=== PATIENT | male | born 1960 | race Caucasian/White ===

== ENCOUNTER 2016-04-19 12:42 | Emergency (ER) | payer BC ==
--- NOTE | 2016-04-19 13:59 | ER NURSING DOCUMENTATION ---
Nurse's Notes [facility] Name:Kevin Bagley Age:55 yrs Sex:Male :1960 Arrival Date:04/19/2016 Time:12:42 Bed6 Private MD: Diagnosis:Rib Fracture, Closed, Two Presentation: 04/19 12:46 Care prior to arrival: None. Mechanism of Injury: Fall from horse, had foot in [facility] when horse took off, was not on top of horse. Trauma event details: Injury occurred in the [facility]. 12:46 Acuity: CARIDAD 3 12:46 Method Of Arrival: Walk In 12:56 Transition of care: patient was not received from another setting of care. Notified ED nf Physician of patient's arrival and CC Dr. Yang notified. 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 Triage Assessment: 12:46 Neuro: No deficits noted. Level of Consciousness is awake, alert, Oriented to person, nf place, time, event, Moves all extremities. Gait is steady, Speech is normal, Pupils are PERRLA, Denies unhelmeted, no LOC and states he did not hit his head. Cardiovascular: Capillary refill < 3 seconds Rhythm is regular. Respiratory: Respiratory effort is even, unlabored, shallow, Respiratory pattern is regular, Breath sounds are clear bilaterally. Breath sounds are diminished bilaterally. mild tachypnea, able to speak in complete sentences, prefers to sit up, declines oxygen and analgesic at this time. Derm: No deficits noted. Musculoskeletal: Tenderness present in left shoulder Reports limited ROM left shoulder. Historical: - Allergies: Sulfa (Sulfonamide Antibiotics); - Home Meds: 1. tamsulosin oral 2. Synthroid Oral 3. Celecoxib Oral 4. omeprazole Oral 5. Simvastatin Oral 6. testosterone buccal - PMHx: THYROID PROBLEM; THYROID PROBLEM; GERD; - PSHx: left parotid; bilateral leg veins; HERNIA REPAIR; KNEE SURGERY; elbow; hand; - Tetanus: < 10 years < 10 years. - Ebola Screening: : No symptoms or risks identified at this time. . - Immunization history: Flu Vaccine < 1 year. - Social history: Smoking status: Patient uses tobacco products, current every day smoker. Screenin:55 Abuse screen: Denies threats or abuse. Nutritional screening: No deficits noted. nf Tuberculosis screening: No symptoms or risk factors identified. 12:59 Infectious Disease Risk None. nf Primary Survey: 12:53 Airway: patent. Breathing/Chest: Respiratory pattern: regular, Respiratory effort: nf spontaneous, unlabored, labored when laying down, placed in position of comfort which is sitting up. Circulation: Skin color: pink, Skin temperature: warm, dry. Assessment: 12:52 General: Appears well nourished, well groomed, Behavior is pleasant. Pain: Complains of nf pain in left anterior chest. Pain: Pain does not radiate. 12:59 See Triage Assessment done by same RN. nf 13:19 Reassessment: return from radiology, no change in assessment. nf Vital Signs: 12:54 BP 156 / 100; Pulse 77; Resp 22; Temp 97.5; Pulse Ox 93% on R/A; Weight 88.45 kg; nf Height 5 ft. 8 in. (172.72 cm); Pain 7/10; 13:50 BP 137 / 84; Pulse 81; Resp 16; Pulse Ox 94% on R/A; Pain 7/10; nf 12:54 Body Mass Index 29.65 (88.45 kg, 172.72 cm) nf 12:54 declines analgesic at this time nf Trauma Score (Adult): 12:54 Eye Response: spontaneous(1); Verbal Response: oriented(1); Motor Response: obeys nf commands(2); Systolic BP: > 89 mm Hg(4); Respiratory Rate: 10 to 29 per min(4); Stephanie Score: 15; Trauma Score: 12 ED Course: 12:43 Patient arrived in ED. arc 12:45 Moises Yang MD is Attending Physician. sc 12:46 Ina Peña, TOÑO is Primary Nurse. nf 12:51 Triage completed. nf 12:55 Valuables Remains with patient Patient has correct armband on for positive nf identification. Placed in gown. Bed in low position. Call light in reach. Side rails up X 1. Adult w/ patient. 12:57 Family accompanied patient. nf 12:59 Patient moved to radiology. pm1 12:59 Door closed. Noise minimized. Lights dimmed. Moved to private room. Verbal reassurance nf given. Warm blanket given. Pillow given. Head of bed elevated. Diet: Patient is NPO. 12:59 Oxygen O2 via RA pulse ox WNL and patient declines oxygen at this time. nf 13:00 Valuables Remains with patient. Pulse Ox - RN Monitoring Only NIBP On - RN Monitoring nf Only. 13:13 Patient moved back from radiology. pm1 13:58 release of medical records filled out so patient can get a copy of radiology report nf later this week for [employer]. Administered Medications: No medications were administered Outcome: 13:23 Discharge ordered by . ny 13:58 Patient left the ED. nf 13:58 Discharged to home ambulatory, with family, declines wheelchair nf 13:58 Condition: stable 13:58 Discharge Assessment: Patient awake, alert and oriented x 3. No cognitive and/or functional deficits noted. Patient verbalized understanding of disposition instructions. 13:58 Discharge instructions given to patient, family, Instructed on discharge instructions, follow up and referral plans. Incentive Spirometer medication usage, no drinking with medication, no driving heavy equipment, [facility] Demonstrated understanding of instructions, medications, Prescriptions given X 1, hydrocodone 5-325; ice pack dispensed 03/06 09:36 Discharge F/U Call: Unable to reach: no answer st Signatures: Hellen Sandhu RN RN st Friel, Nicole, RN RN nf Chew, Scott, MD MD sc McBride, Philisha pm1 Nayla Yang, Reg Reg arc
--- NOTE | 2016-04-19 13:59 | ER PHYSICIAN DOCUMENTATION ---
Physician Documentation [facility] Name:Kevin Bagley Age:55 yrs Sex:Male :1960 Arrival Date:04/19/2016 Time:12:42 Bed6 Private MD: Moises Ram Disposition: 04/19/16 13:23 Discharged to Home/Self Care. Impression: Rib Fracture, Closed, Two. - Condition is Fair. - Discharge Instructions: Fractures, Rib - FRACTURE, Rib. - Prescriptions for Hydrocodone- Acetaminophen 5-325 mg Oral Tablet - take 1 tablet by ORAL route every 6 hours As needed; 20 tablet. - Medical Reconciliation form form. - Follow up: Emergency Department; When: As needed; Reason: Worsening of condition. - Problem is new. - Symptoms have improved. HPI: 04/19 13:15 This 55 yrs old Male presents to ER via Walk In with complaints of Fall sc Injury. 13:15 Details of fall: The patient fell from an upright position, during sports, mounting a sc horse, jail up. Onset: The symptom(s)/episode began/occurred just prior to arrival. Associated injuries: The patient sustained injury to the chest, pain with breathing, pain with movement. Associated signs and symptoms: The patient has no apparent associated signs or symptoms, Loss of consciousness: the patient experienced no loss of consciousness. Severity of symptoms: At their worst the symptoms were severe. Historical: - Allergies: Sulfa (Sulfonamide Antibiotics); - Home Meds: 1. tamsulosin oral 2. Synthroid Oral 3. Celecoxib Oral 4. omeprazole Oral 5. Simvastatin Oral 6. testosterone buccal - PMHx: THYROID PROBLEM; THYROID PROBLEM; GERD; - PSHx: left parotid; bilateral leg veins; HERNIA REPAIR; KNEE SURGERY; elbow; hand; - Tetanus: < 10 years < 10 years. - Ebola Screening: : No symptoms or risks identified at this time. . - Immunization history: Flu Vaccine < 1 year. - Social history: Smoking status: Patient uses tobacco products, current every day smoker. ROS: 13:19 Constitutional: Negative for fever, chills, and weight loss. sc Eyes: Negative for injury, pain, redness, and discharge. ENT: Negative for injury, pain, and discharge. Neck: Negative for injury, pain, and swelling. Cardiovascular: Negative for chest pain, palpitations, and edema. Abdomen/GI: Negative for abdominal pain, nausea, vomiting, diarrhea, and constipation. Back: Negative for injury and pain. MS/Extremity: Negative for injury and deformity. Skin: Negative for injury, rash, and discoloration. 13:19 Neuro: Negative for headache, weakness, numbness, tingling, and seizure. sc 13:19 Respiratory: Positive for pain with inspiration. Exam: Constitutional: This is a well developed, well nourished patient who is awake, alert, and in no acute distress. Head/Face: Normocephalic, atraumatic. Eyes: Pupils equal round and reactive to light, extra-ocular motions intact. Lids and lashes normal. Conjunctiva and sclera are non-icteric and not injected. Cornea within normal limits. Periorbital areas with no swelling, redness, or edema. ENT: Nares patent. No nasal discharge, no septal abnormalities noted. Tympanic membranes are normal and external auditory canals are clear. Oropharynx with no redness, swelling, or masses, exudates, or evidence of obstruction, uvula midline. Mucous membranes moist. Neck: Trachea midline, no thyromegaly or masses palpated, and no cervical lymphadenopathy. Supple, full range of motion without nuchal rigidity, or vertebral point tenderness. No meningismus. Cardiovascular: Regular rate and rhythm with a normal S1 and S2. No gallops, murmurs, or rubs. Normal PMI, no JVD. No pulse deficits. Respiratory: Lungs have equal breath sounds bilaterally, clear to auscultation and percussion. No rales, rhonchi or wheezes noted. No increased work of breathing, no retractions or nasal flaring. Abdomen/GI: Soft, non-tender, with normal bowel sounds. No distension or tympany. No guarding or rebound. No evidence of tenderness throughout. Back: No spinal tenderness. No costovertebral tenderness. Full range of motion. 13:20 Skin: Warm, dry with normal turgor. Normal color with no rashes, no lesions, and no sc evidence of cellulitis. 13:20 Chest/axilla: Inspection: normal, Palpation: tenderness, that is severe, of the left lateral anterior chest, that totally reproduces the patient's complaints. 13:24 Musculoskeletal/extremity: Exam is negative for acute changes. sc 13:24 Neuro: Orientation: is normal, Mentation: is normal, Cranial nerves: CN II- XII are nj normal as tested, Gait: is steady. Vital Signs: 12:54 BP 156 / 100; Pulse 77; Resp 22; Temp 97.5; Pulse Ox 93% on R/A; Weight 88.45 kg; nf Height 5 ft. 8 in. (172.72 cm); Pain 7/10; 13:50 BP 137 / 84; Pulse 81; Resp 16; Pulse Ox 94% on R/A; Pain 7/10; nf 12:54 Body Mass Index 29.65 (88.45 kg, 172.72 cm) nf 12:54 declines analgesic at this time nf Trauma Score (Adult): 12:54 Eye Response: spontaneous(1); Verbal Response: oriented(1); Motor Response: obeys nf commands(2); Systolic BP: > 89 mm Hg(4); Respiratory Rate: 10 to 29 per min(4); Stephanie Score: 15; Trauma Score: 12 MDM: 12:45 Patient medically screened. nj 13:21 Differential diagnosis: contusion, fracture, multiple trauma. Data reviewed: vital sc signs, nurses notes, radiologic studies. Data reviewed: and as a result, I will discharge patient. Counseling: I had a detailed discussion with the patient and/or guardian regarding: the historical points, exam findings, and any diagnostic results supporting the discharge/admit diagnosis, radiology results, risk of leaving the Emergency Department, higher risk of pulmonary complications. 04/19 13:25 Order name: Incentive Spirometer: Incentive Spirometer; Complete Time: 14:04 nj Dispensed Medications: No medications were administered Signatures: Ina Peña, RN RN Moises Yang MD MD nj
--- NOTE | 2016-04-22 09:21 | RADIOLOGY REPORT ---
HISTORY: Trauma. Fall from horse. COMPARISON: None. FINDINGS: PA and lateral views of the chest were obtained. Lungs are hypoventilated with basilar volume loss. No confluent infiltrate or consolidation. No pneumothorax or pleural effusion. There is mild tenting of the lateral aspect of the left diaphragm. Cardiomediastinal silhouette is not enlarged. Trachea is midline. There is mild ectasia of the thoracic aorta. Pulmonary vascularity is within normal limits. There is slight cortical irregularity involving the lateral aspects of the left seventh and eighth ribs. This is nonspecific finding. This could represent a nondisplaced fracture. Consider further evaluation with specific rib views if clinically indicated. IMPRESSION: 1. Cortical irregularity involving the lateral aspects of the left seventh and eighth ribs in the midaxillary line which could represent nondisplaced fractures. This may be better evaluated with dedicated left rib views if clinically indicated. Final Electronic Signature: This report was electronically signed by Juan Acosta MD on 04/20/2016 9:31 AM. latrice / MINESH
== END 2016-04-19 13:59 | disposition home or self-care (01) ==
LOC: ER 12:42
DX: S22.42XA Multiple fractures of ribs, left side, initial encounter for closed fracture (principal); V80.010A Animal-rider injured by fall from or being thrown from horse in noncollision accident, initial encounter; Y92.838 Other recreation area as the place of occurrence of the external cause; Y93.52 Activity, horseback riding; R07.1 Chest pain on breathing; Z79.899 Other long term (current) drug therapy
CPT/HCPCS: 71020; 99284